=== PATIENT | female | born 1965 | race Caucasian/White ===

== ENCOUNTER → 2022-12-08 | Outpatient (CLI) | payer BC ==
--- NOTE | 2022-12-08 10:12 | US ---
EXAMINATION TYPE: US abdomen complete DATE OF EXAM: 12/08/2022 COMPARISON: NONE CLINICAL INDICATION: Female, 57 years old with history of K80.20 CALCULUS OF GALLBLADDER W/O CHOLECYS TITIS W; TECHNIQUE: Multiple sonographic images of the abdomen are obtained. FINDINGS: EXAM MEASUREMENTS: Liver Length: 10.6 cm Gallbladder Wall: 0.3 cm CBD: 0.6 cm Spleen: 10.0 cm Right Kidney: 10.4 x 3.9 x 5.4 cm Left Kidney: 11.7 x 5.7 x 6.2 cm MANAGER OF CASE NOTES: Pancreas: wnl Liver: wnl Gallbladder: 1.4 cm mobile stone with shadowing Evidence for sonographic Shi's sign: Yes CBD: wnl Spleen: wnl Right Kidney: No hydronephrosis or masses seen Left Kidney: No hydronephrosis or masses seen Upper IVC: wnl Abd Aorta: wnl The liver is homogenous. The intrahepatic portion of the IVC and proximal abdominal aorta are within normal limits. Common bile duct is unremarkable. The visualized portions of the pancreas are homog enous. The spleen is unremarkable. Kidneys are symmetric and free of hydronephrosis. No renal lesi ons are seen. IMPRESSION: Uncomplicated cholelithiasis.
== END | disposition home or self-care (01) ==
LOC: RADUSWWP 09:39
PROVIDERS: ATTEND Internal Medicine
DX: K80.20 Calculus of gallbladder without cholecystitis without obstruction (principal)
CPT/HCPCS: 76700

== ENCOUNTER → 2022-12-29 | Outpatient (CLI) | payer BC ==
--- NOTE | 2023-01-03 08:17 | MM ---
Reason for Exam: Screening (asymptomatic). Last mammogram was performed 8 year(s) and 3 month(s) ago. Patient History: Menarche at age 13. First Full-Term at age 28. Postmenopausal. Risk Values: Margaret 5 year model risk: 1.4%. NCI Lifetime model risk: 9.9%. Prior Study Comparison: 07/03/2012 Bilateral Diagnostic Mammogram, Cathryn Camas. 07/03/2012 Right Diagnostic Ultrasound, Cathryn Camas. 08/21/2013 Bilateral Diagnostic Mammogram, Cathryn Camas. 08/21/2013 Right Diagnostic Ultrasound, Cathryn Camas. 10/15/2014 Bilateral Diagnostic Mammogram, Cathryn Camas. 10/15/2014 Right Diagnostic Ultrasound, Cathryn Camas. Tissue Density: The breast tissue is heterogeneously dense. This may lower the sensitivity of mammography. Findings: Analyzed By CAD. There is no suspicious group of microcalcifications or new suspicious mass in either breast. Stable chronic nodularity within the right breast. Overall Assessment: Benign, BI-RAD 2 Management: Screening Mammogram of both breasts in 1 year. A clinical breast exam by your physician is recommended on an annual basis and results should be correlated with mammographic findings. Note on Margaret scores and lifetime risk: 1. A Margaret score greater than 3% is considered moderate risk. If this is the case, consider specialist referral to assess eligibility for a risk reducing agent. If overall lifetime risk for the development of breast cancer is 20% or higher, the patient may qualify for future screening with alternating mammogram and breast MRI. Electronically signed and approved by: Jay Musa D.O.
== END | disposition home or self-care (01) ==
LOC: RADMAMWWP 14:59
PROVIDERS: ATTEND Internal Medicine
DX: Z12.31 Encounter for screening mammogram for malignant neoplasm of breast (principal); Z78.0 Asymptomatic menopausal state
CPT/HCPCS: 77067